=== PATIENT | male | born 1930 | race Caucasian/White ===

== ENCOUNTER 2021-08-02 19:29 | Inpatient (IN) ==
[2021-08-02] MEDS ORDERED: 0.9 % Sodium Chloride 1,000 ML IVC ONE (20:00)
[2021-08-02] MEDS ORDERED: cefTRIAXone 1,000 MG in Water for inj. (sterile) 10 ML IVP ONE (20:06)
[2021-08-02] MEDS ORDERED: Isovue-370 500 ML BOTTLE IVP ONE (20:06)
[2021-08-02 20:10] LABS: Bacteria,Urine Few per hpf (None-Few); Bilirubin,Urine Negative (Negative); Blood,Urine Negative (Negative); Clarity,Urine Clear (Clear); Color,Urine Yellow (Yellow); Glucose,Urine (UA) Normal (Normal); Ketones,Urine Negative (Negative); Leukocyte Esterase,Urine Negative (Negative); Nitrite,Urine Positive (Negative); PH,Urine 7.5 pH Units (5.0-8.0); Protein,Urine 30 mg/dL (Neg-Trace); RBC,Urine 0-3 per hpf (0-3); Specific Gravity,Urine 1.016 (1.010-1.025); Squamous Epithelial Cell,Urine Few per hpf (None-Few); Urobilinogen,Urine Normal (Normal)
[2021-08-02 20:29] LABS: Basophils % 0.2 %; Eosinophils % 0.1 %; Hematocrit 35.7 % (37.5-50.1); Hemoglobin 11.2 g/dL (12.9-16.9); Immature Granulocytes % 0.4 % (0-4); Lymphocytes # 0.3 K/mcL (0.6-4.6); Lymphocytes % 1.8 %; Mean Corpuscular HGB Conc 31.4 g/dL (31.6-35.5); Mean Corpuscular Hemoglobin 28.3 pg (28.0-33.3); Mean Corpuscular Volume 90.2 fL (83.0-100.0); Mean Platelet Volume 9.4 fL (9.4-12.4); Monocytes # 0.4 K/mcL (0.0-1.3); Monocytes % 2.8 %; Neutrophils # 13.9 K/mcL (1.6-8.9); Platelet Count 425 K/mcL (140-400); Red Blood Count 3.96 M/mcL (4.19-5.50); Red Cell Distribution Width 14.3 % (11.5-14.5); Segmented Neutrophils % 94.7 %; White Blood Count 14.6 K/mcL (4.3-11.1)
[2021-08-02 20:36] LABS: VBG HCO3 30 mEq/L (21-27); VBG PCO2 45 mmHg (41-51); VBG PH 7.43 pH Units (7.32-7.42); VBG PO2 56 mmHg (25-50)
[2021-08-02 20:38] LABS: INR 1.1; Prothrombin Time 12.2 Seconds (9.4-12.1)
[2021-08-02 20:40] LABS: Activated Partial Thrombo Time 27.4 Seconds (26.0-36.0)
[2021-08-02 20:53] LABS: Alanine Aminotransferase 262 Units/L (7-52); Albumin 3.4 g/dL (3.5-5.7); Albumin/Globulin Ratio 1.1 (1.1-2.2); Alkaline Phosphatase 396 Units/L (34-104); Aspartate Amino Transferase 488 Units/L (13-39); BUN/Creatinine Ratio 17 (6-26); Bilirubin,Direct 1.1 mg/dL (0.0-0.2); Bilirubin,Indirect 0.6 mg/dL (0.0-1.0); Bilirubin,Total 1.7 mg/dL (0.3-1.0); Blood Urea Nitrogen 21 mg/dL (8-23); Calcium 8.4 mg/dL (8.6-10.3); Carbon Dioxide 28 mEq/L (23-29); Chloride 102 mEq/L (98-107); Globulin 3.1 g/dL (2.4-3.5); Glucose 188 mg/dL (70-105); Lipase 21 Units/L (11-82); Magnesium 1.4 mg/dL (1.6-2.6); Osmolality,Calculated 302 (280-300); Phosphorous 1.4 mg/dL (2.7-4.5); Sodium 142 mEq/L (136-145); Total Protein 6.5 g/dL (6.4-8.9); eGFR For African Americans > 60 (> 60); eGFR For Non-African Americans 57 (> 60)
[2021-08-02 21:21] LABS: Influenza A PCR Negative (Negative); Influenza B PCR Negative (Negative); Resp. Syncytial Virus PCR Negative (Negative)
[2021-08-02 21:24] LABS: Troponin I 0.03 ng/mL (< 0.04)
[2021-08-02 21:28] LABS: SARS-CoV-2 by PCR (In House) Negative (Negative)
[2021-08-02] MEDS ORDERED: *HR* HYDROmorphone (PF) 1 MG/ML SYRINGE IVP ONE (23:22)
[2021-08-03] MEDS ORDERED: Piperacillin/Tazobactam 3.375 GM in 0.9 % Sodium Chloride Mini Bag 100 ML IVPB ONE (00:10)
[2021-08-03] MEDS ORDERED: Calcium Gluconate 1gm/50mL 1 GM/50 ML BAG IVPB ONE (00:15)
[2021-08-03] MEDS ORDERED: Magnesium Sulfate 1 GM/102 ML PIGGYBACK IVPB ONE (00:15)
[2021-08-03] MEDS ORDERED: Ondansetron 4 MG/2 ML VIAL IVP PRN (01:30)
[2021-08-03] MEDS ORDERED: Naloxone 0.4 MG/ML INJ IVP PRN (01:32)
[2021-08-03] MEDS: 0.9 % Sodium Chloride 1,000 ML IVC SCH ×2 (02:07→12:50)
[2021-08-03 02:43] LABS: Hematocrit 31.8 % (37.5-50.1); Hemoglobin 10.2 g/dL (12.9-16.9); Mean Corpuscular HGB Conc 32.1 g/dL (31.6-35.5); Mean Corpuscular Hemoglobin 29.3 pg (28.0-33.3); Mean Corpuscular Volume 91.4 fL (83.0-100.0); Mean Platelet Volume 9.7 fL (9.4-12.4); Platelet Count 352 K/mcL (140-400); Red Blood Count 3.48 M/mcL (4.19-5.50); Red Cell Distribution Width 14.3 % (11.5-14.5)
[2021-08-03 03:00] LABS: Calcium 8.2 mg/dL (8.6-10.3); Chol/HDL Ratio 2.2 (0-4.9); Magnesium 1.4 mg/dL (1.6-2.6); Phosphorous 2.3 mg/dL (2.7-4.5); Potassium 3.5 mEq/L (3.5-5.1)
[2021-08-03 04:03] LABS: Ferritin 95 ng/mL (20-250)
[2021-08-03 04:43] LABS: Estimated Average Glucose 126 mg/dl
[2021-08-03] MEDS ORDERED: *HR* HYDROcodone/Acet 5/325 mg TABLET PO PRN (07:34)
[2021-08-03] MEDS ORDERED: Acetaminophen 325 MG TABLET PO PRN (07:34)
[2021-08-03] MEDS: lisinopriL 10 MG TABLET PO SCH (08:00)
[2021-08-03] MEDS: Piperacillin/Tazobactam 3.375 GM in 0.9 % Sodium Chloride Mini Bag 100 ML IVPB SCH ×2 (08:17→18:20)
[2021-08-03] MEDS ORDERED: cefTRIAXone 1,000 MG in 0.9 % Sodium Chloride Mini Bag 100 ML IVPB SCH (09:00)
[2021-08-03 09:59] LABS: Troponin I 0.07 ng/mL (< 0.04)
[2021-08-03 11:38] LABS: Enterococcus by PCR Not Detected (Not Detect); blaKPC Carbapenem-Resist Gene Not Detected (Not Detect)
[2021-08-03 11:39] LABS: Acinetobacter baumannii by PCR Not Detected (Not Detect); Candida albicans by PCR Not Detected (Not Detect); Candida glabrata by PCR Not Detected (Not Detect); Candida krusei by PCR Not Detected (Not Detect); Candida parapsilosis by PCR Not Detected (Not Detect); Candida tropicalis by PCR Not Detected (Not Detect); Enterobacter cloacae Cmplx PCR Not Detected (Not Detect); Escherichia coli by PCR DETECTED (Not Detect); Klebsiella oxytoca by PCR Not Detected (Not Detect); Klebsiella pneumoniae by PCR Not Detected (Not Detect); Proteus by PCR Not Detected (Not Detect); Pseudomonas aeruginosa by PCR Not Detected (Not Detect); Serratia marcescens by PCR Not Detected (Not Detect); Staphylococcus aureus by PCR Not Detected (Not Detect); Staphylococcus by PCR Not Detected (Not Detect); Streptococcus agalactiae(B)PCR Not Detected (Not Detect); Streptococcus by PCR Not Detected (Not Detect); Streptococcus pneumoniae PCR Not Detected (Not Detect); Streptococcus pyogenes (A) PCR Not Detected (Not Detect)
[2021-08-03] MEDS ORDERED: Isovue-370 500 ML BOTTLE IVP ONE (11:57)
[2021-08-03 12:58] LABS: Carcinoembryonic Antigen 34.4 ng/mL (Less than 5.0)
[2021-08-03] MEDS ORDERED: Lidocaine HCL 4 ML Topical Solution (Laryng-O-Jet Kit Sterile Pak) TP ONE (14:46)
[2021-08-03] MEDS ORDERED: Lidocaine -MPF 2% 5 ML VIAL ONE (14:47)
[2021-08-03] MEDS ORDERED: *HR* FentaNYL (PF) 100 MCG/2 ML VIAL ONE (14:48)
[2021-08-03] MEDS ORDERED: *HR* Succinylcholine 200 MG/10 ML VIAL IVP ONE (14:49)
[2021-08-03] MEDS ORDERED: *HR* Rocuronium Bromide 50 MG/5 ML VIAL ONE (14:49)
[2021-08-03] MEDS ORDERED: Ondansetron 4 MG/2 ML VIAL ONE (14:50)
[2021-08-03] MEDS ORDERED: Indomethacin 50 MG SUPP.RECT RC ONE (16:36)
[2021-08-04] MEDS: Piperacillin/Tazobactam 3.375 GM in 0.9 % Sodium Chloride Mini Bag 100 ML IVPB SCH (02:37)
[2021-08-04 06:53] LABS: Mean Platelet Volume 10.8 fL (9.4-12.4)
[2021-08-04 06:55] LABS: Hematocrit 29.3 % (37.5-50.1); Hemoglobin 8.9 g/dL (12.9-16.9); Mean Corpuscular HGB Conc 30.4 g/dL (31.6-35.5); Mean Corpuscular Hemoglobin 28.3 pg (28.0-33.3); Mean Corpuscular Volume 93.3 fL (83.0-100.0); Platelet Count 156 K/mcL (140-400); Red Blood Count 3.14 M/mcL (4.19-5.50); Red Cell Distribution Width 14.9 % (11.5-14.5); White Blood Count 26.4 K/mcL (4.3-11.1)
[2021-08-04 07:57] LABS: Calcium 7.3 mg/dL (8.6-10.3); Potassium 4.6 mEq/L (3.5-5.1)
[2021-08-04] MEDS: lisinopriL 10 MG TABLET PO SCH (09:44)
[2021-08-04] MEDS ORDERED: Piperacillin/Tazobactam 3.375 GM in 0.9 % Sodium Chloride Mini Bag 100 ML IVPB SCH (10:00)
[2021-08-04] MEDS ORDERED: Calcium Gluconate 1gm/50mL 1 GM/50 ML BAG IVPB ONE (11:55)
[2021-08-04 11:56] LABS: Albumin 2.6 g/dL (3.5-5.7); Albumin/Globulin Ratio 0.9 (1.1-2.2); Bilirubin,Direct 1.6 mg/dL (0.0-0.2); Bilirubin,Indirect 0.4 mg/dL (0.0-1.0); Globulin 2.8 g/dL (2.4-3.5); Total Protein 5.4 g/dL (6.4-8.9)
[2021-08-04] MEDS: 0.9 % Sodium Chloride 1,000 ML IVC SCH (15:15)
[2021-08-04] MEDS: cefTRIAXone 2,000 MG in 0.9 % Sodium Chloride Mini Bag 100 ML IVPB SCH (15:24)
[2021-08-04] MEDS: metroNIDAZOLE 500 MG TABLET PO SCH ×2 (15:26→20:25)
[2021-08-04] MEDS: Cholecalciferol (D-3) 1,000 UNIT (25MCG) TABLET PO SCH (15:26)
[2021-08-04] MEDS ORDERED: SODIUM CHLORIDE/NAHCO3/KCL/PEG 4,000 ML SOLN.RECON PO ONE (17:00)
[2021-08-04 18:39] LABS: Magnesium 1.8 mg/dL (1.6-2.6); Phosphorous 3.7 mg/dL (2.7-4.5)
[2021-08-04 18:41] LABS: Albumin 2.9 g/dL (3.5-5.7); Bilirubin,Direct 0.8 mg/dL (0.0-0.2); Bilirubin,Indirect 0.5 mg/dL (0.0-1.0); Bilirubin,Total 1.3 mg/dL (0.3-1.0); Globulin 2.9 g/dL (2.4-3.5); Total Protein 5.8 g/dL (6.4-8.9)
[2021-08-05] MEDS: 0.9 % Sodium Chloride 1,000 ML IVC SCH (01:30)
[2021-08-05 05:45] LABS: Hematocrit 31.9 % (37.5-50.1); Hemoglobin 10.2 g/dL (12.9-16.9); Mean Corpuscular Hemoglobin 28.8 pg (28.0-33.3); Mean Corpuscular Volume 90.1 fL (83.0-100.0); Mean Platelet Volume 11.5 fL (9.4-12.4); Platelet Count 148 K/mcL (140-400); Red Blood Count 3.54 M/mcL (4.19-5.50); Red Cell Distribution Width 14.6 % (11.5-14.5); White Blood Count 26.2 K/mcL (4.3-11.1)
[2021-08-05 05:53] LABS: Albumin 2.9 g/dL (3.5-5.7); Albumin/Globulin Ratio 0.9 (1.1-2.2); Bilirubin,Total 1.1 mg/dL (0.3-1.0); Calcium 8.1 mg/dL (8.6-10.3); Globulin 3.1 g/dL (2.4-3.5)
[2021-08-05 05:54] LABS: Albumin 2.9 g/dL (3.5-5.7); Albumin/Globulin Ratio 0.9 (1.1-2.2); Bilirubin,Direct 0.6 mg/dL (0.0-0.2); Bilirubin,Indirect 0.5 mg/dL (0.0-1.0); Bilirubin,Total 1.1 mg/dL (0.3-1.0); Globulin 3.2 g/dL (2.4-3.5); Total Protein 6.1 g/dL (6.4-8.9)
[2021-08-05 06:30] LABS: Lymphocytes # 0.8 K/mcL (0.6-4.6); Monocytes # 0.8 K/mcL (0.0-1.3); Neutrophils # 24.6 K/mcL (1.6-8.9); Toxic Granulation Present (Not Present)
[2021-08-05 06:31] LABS: Platelet Estimate Normal (Normal)
[2021-08-05] MEDS: cefTRIAXone 2,000 MG in 0.9 % Sodium Chloride Mini Bag 100 ML IVPB SCH (08:42)
[2021-08-05] MEDS: Cholecalciferol (D-3) 1,000 UNIT (25MCG) TABLET PO SCH (08:43)
[2021-08-05] MEDS: metroNIDAZOLE 500 MG TABLET PO SCH ×3 (08:43→21:02)
[2021-08-05] MEDS ORDERED: *HR* Propofol 200 MG/20 ML VIAL IVP ONE (10:34)
[2021-08-05 10:48] LABS: Transferrin 156 mg/dL (200-400)
[2021-08-05 11:02] LABS: Magnesium 1.9 mg/dL (1.6-2.6); Phosphorous 2.6 mg/dL (2.7-4.5)
[2021-08-05] MEDS ORDERED: Calcium Gluconate 1gm/50mL 1 GM/50 ML BAG IVPB ONE (11:17)
[2021-08-05] MEDS ORDERED: Perflutren Lipid Microsphere 1.3 ML in 0.9 % Sodium Chloride 8.7 ML IVP PRN (11:21)
[2021-08-05] MEDS: *HR* Metoprolol 5 MG/5 ML VIAL IVP PRN (12:03)
[2021-08-05] MEDS ORDERED: *HR* Heparin 5,000 UNIT/ML VIAL IVP ONE (12:40)
[2021-08-05] MEDS ORDERED: *HR* Heparin 5,000 UNIT/ML VIAL IVP PRN ×2 (12:40)
[2021-08-05] MEDS: DilTIAZem 50 MG/50 ML IV.SOLN IVC SCH ×3 (13:47→21:52)
[2021-08-05] MEDS: Heparin 25,000UNIT/250ML 1/2NS 25,000 UNIT/250 ML IV.SOLN IVC SCH (13:48)
[2021-08-05 15:09] LABS: Hematocrit 33.4 % (37.5-50.1); Hemoglobin 10.8 g/dL (12.9-16.9); Mean Corpuscular HGB Conc 32.3 g/dL (31.6-35.5); Mean Corpuscular Hemoglobin 29.8 pg (28.0-33.3); Mean Corpuscular Volume 92.3 fL (83.0-100.0); Mean Platelet Volume 11.3 fL (9.4-12.4); Platelet Count 172 K/mcL (140-400); Red Blood Count 3.62 M/mcL (4.19-5.50); Red Cell Distribution Width 14.7 % (11.5-14.5); White Blood Count 23.5 K/mcL (4.3-11.1)
[2021-08-05 15:16] LABS: Heparin anti-factor XA UFH 0.55 IU/mL (0.30-0.70)
[2021-08-05 15:17] LABS: INR 1.2; Prothrombin Time 13.2 Seconds (9.4-12.1)
[2021-08-05] MEDS ORDERED: SODIUM CHLORIDE/NAHCO3/KCL/PEG 4,000 ML SOLN.RECON PO ONE (17:00)
[2021-08-06] MEDS: DilTIAZem 50 MG/50 ML IV.SOLN IVC SCH ×5 (00:02→19:56)
[2021-08-06 05:25] LABS: Basophils % 0.2 %; Eosinophils % 0.2 %; Hematocrit 30.9 % (37.5-50.1); Hemoglobin 9.7 g/dL (12.9-16.9); Immature Granulocytes % 3.2 % (0-4); Lymphocytes # 0.8 K/mcL (0.6-4.6); Lymphocytes % 4.9 %; Mean Corpuscular HGB Conc 31.4 g/dL (31.6-35.5); Mean Corpuscular Hemoglobin 29.1 pg (28.0-33.3); Mean Corpuscular Volume 92.8 fL (83.0-100.0); Mean Platelet Volume 11.1 fL (9.4-12.4); Monocytes # 0.9 K/mcL (0.0-1.3); Monocytes % 5.8 %; Neutrophils # 13.7 K/mcL (1.6-8.9); Platelet Count 149 K/mcL (140-400); Red Blood Count 3.33 M/mcL (4.19-5.50); Red Cell Distribution Width 14.8 % (11.5-14.5); Segmented Neutrophils % 85.7 %
[2021-08-06 05:46] LABS: Alanine Aminotransferase 77 Units/L (7-52); Albumin 2.8 g/dL (3.5-5.7); Albumin/Globulin Ratio 0.9 (1.1-2.2); Alkaline Phosphatase 288 Units/L (34-104); Aspartate Amino Transferase 32 Units/L (13-39); BUN/Creatinine Ratio 20 (6-26); Bilirubin,Total 0.7 mg/dL (0.3-1.0); Blood Urea Nitrogen 26 mg/dL (8-23); Calcium 8.3 mg/dL (8.6-10.3); Carbon Dioxide 25 mEq/L (23-29); Chloride 108 mEq/L (98-107); Glucose 102 mg/dL (70-105); Osmolality,Calculated 293 (280-300); Potassium 4.3 mEq/L (3.5-5.1); Sodium 139 mEq/L (136-145); Total Protein 5.8 g/dL (6.4-8.9); eGFR For African Americans > 60 (> 60); eGFR For Non-African Americans 54 (> 60)
[2021-08-06 05:48] LABS: Magnesium 1.7 mg/dL (1.6-2.6); Phosphorous 2.2 mg/dL (2.7-4.5)
[2021-08-06 05:50] LABS: Albumin 2.8 g/dL (3.5-5.7); Albumin/Globulin Ratio 0.9 (1.1-2.2); Bilirubin,Direct 0.4 mg/dL (0.0-0.2); Bilirubin,Indirect 0.3 mg/dL (0.0-1.0); Bilirubin,Total 0.7 mg/dL (0.3-1.0); Total Protein 5.8 g/dL (6.4-8.9)
[2021-08-06] MEDS: Heparin 25,000UNIT/250ML 1/2NS 25,000 UNIT/250 ML IV.SOLN IVC SCH (07:25)
[2021-08-06] MEDS ORDERED: Lidocaine -MPF 2% 2 ML VIAL ONE (09:09)
[2021-08-06] MEDS ORDERED: Ondansetron 4 MG/2 ML VIAL ONE (10:05)
[2021-08-06] MEDS: cefTRIAXone 2,000 MG in 0.9 % Sodium Chloride Mini Bag 100 ML IVPB SCH (11:01)
[2021-08-06] MEDS: Cholecalciferol (D-3) 1,000 UNIT (25MCG) TABLET PO SCH (11:03)
[2021-08-06] MEDS: metroNIDAZOLE 500 MG TABLET PO SCH ×3 (11:03→19:42)
[2021-08-07 05:23] LABS: Lymphocytes % 7.7 %; Monocytes % 10.7 %; Platelet Count 134 K/mcL (140-400)
[2021-08-07 05:24] LABS: Basophils # 0.1 K/mcL (0.0-0.2); Basophils % 0.9 %; Eosinophils # 0.1 K/mcL (0.0-0.6); Eosinophils % 0.7 %; Hematocrit 33.3 % (37.5-50.1); Hemoglobin 10.1 g/dL (12.9-16.9); Immature Granulocytes % 3.4 % (0-4); Immature Platelets 9.5 % (1.1-6.1); Mean Corpuscular HGB Conc 30.3 g/dL (31.6-35.5); Mean Corpuscular Hemoglobin 28.2 pg (28.0-33.3); Mean Platelet Volume 11.6 fL (9.4-12.4); Monocytes # 1.3 K/mcL (0.0-1.3); Neutrophils # 9.6 K/mcL (1.6-8.9); Nucleated Red Blood Cells 0.2 /100 WBC (0); Red Blood Count 3.58 M/mcL (4.19-5.50); Red Cell Distribution Width 14.7 % (11.5-14.5); Segmented Neutrophils % 76.6 %; White Blood Count 12.5 K/mcL (4.3-11.1)
[2021-08-07 05:31] LABS: Alanine Aminotransferase 54 Units/L (7-52); Albumin 2.8 g/dL (3.5-5.7); Albumin/Globulin Ratio 0.9 (1.1-2.2); Alkaline Phosphatase 290 Units/L (34-104); Aspartate Amino Transferase 21 Units/L (13-39); BUN/Creatinine Ratio 16 (6-26); Bilirubin,Direct 0.3 mg/dL (0.0-0.2); Bilirubin,Indirect 0.3 mg/dL (0.0-1.0); Bilirubin,Total 0.6 mg/dL (0.3-1.0); Blood Urea Nitrogen 20 mg/dL (8-23); Calcium 8.1 mg/dL (8.6-10.3); Carbon Dioxide 26 mEq/L (23-29); Chloride 107 mEq/L (98-107); Glucose 144 mg/dL (70-105); Magnesium 1.7 mg/dL (1.6-2.6); Osmolality,Calculated 297 (280-300); Phosphorous 2.4 mg/dL (2.7-4.5); Potassium 4.3 mEq/L (3.5-5.1); Sodium 141 mEq/L (136-145); Total Protein 5.8 g/dL (6.4-8.9); eGFR For African Americans > 60 (> 60); eGFR For Non-African Americans 54 (> 60)
[2021-08-07] MEDS: Heparin 25,000UNIT/250ML 1/2NS 25,000 UNIT/250 ML IV.SOLN IVC SCH ×3 (07:10→20:31)
[2021-08-07] MEDS: Metoprolol XL (24 HR) Succ 50 MG TAB.ER.24H PO SCH ×2 (07:55→19:50)
[2021-08-07] MEDS: metroNIDAZOLE 500 MG TABLET PO SCH ×3 (07:55→19:50)
[2021-08-07] MEDS: cefTRIAXone 2,000 MG in 0.9 % Sodium Chloride Mini Bag 100 ML IVPB SCH (07:55)
[2021-08-07] MEDS: Cholecalciferol (D-3) 1,000 UNIT (25MCG) TABLET PO SCH (07:55)
[2021-08-07] MEDS ORDERED: Metoprolol XL (24 HR) Succ 50 MG TAB.ER.24H PO SCH (09:00)
[2021-08-07] MEDS: lisinopriL 10 MG TABLET PO SCH (10:05)
[2021-08-07] MEDS ORDERED: Perflutren Lipid Microsphere 1.3 ML in 0.9 % Sodium Chloride 8.7 ML IVP PRN (10:46)
[2021-08-08 07:35] LABS: Magnesium 1.4 mg/dL (1.6-2.6); Phosphorous 2.3 mg/dL (2.7-4.5)
[2021-08-08 07:36] LABS: Albumin 2.7 g/dL (3.5-5.7); Albumin/Globulin Ratio 0.9 (1.1-2.2); Bilirubin,Direct 0.3 mg/dL (0.0-0.2); Bilirubin,Indirect 0.3 mg/dL (0.0-1.0); Bilirubin,Total 0.6 mg/dL (0.3-1.0); Total Protein 5.7 g/dL (6.4-8.9)
[2021-08-08] MEDS: cefTRIAXone 2,000 MG in 0.9 % Sodium Chloride Mini Bag 100 ML IVPB SCH (08:50)
[2021-08-08] MEDS: Metoprolol XL (24 HR) Succ 50 MG TAB.ER.24H PO SCH ×2 (08:55→20:33)
[2021-08-08] MEDS: lisinopriL 10 MG TABLET PO SCH (08:55)
[2021-08-08] MEDS: metroNIDAZOLE 500 MG TABLET PO SCH ×3 (08:55→20:32)
[2021-08-08] MEDS: Cholecalciferol (D-3) 1,000 UNIT (25MCG) TABLET PO SCH (08:55)
[2021-08-08] MEDS: Heparin 25,000UNIT/250ML 1/2NS 25,000 UNIT/250 ML IV.SOLN IVC SCH ×2 (10:49→23:17)
[2021-08-08] MEDS: *HR* Metoprolol 5 MG/5 ML VIAL IVP PRN (11:23)
[2021-08-08 16:59] LABS: Basophils # 0.1 K/mcL (0.0-0.2); Basophils % 0.4 %; Eosinophils # 0.2 K/mcL (0.0-0.6); Eosinophils % 1.3 %; Hematocrit 38.9 % (37.5-50.1); Hemoglobin 11.9 g/dL (12.9-16.9); Immature Granulocytes % 7.4 % (0-4); Lymphocytes # 1.2 K/mcL (0.6-4.6); Lymphocytes % 8.3 %; Mean Corpuscular HGB Conc 30.6 g/dL (31.6-35.5); Mean Corpuscular Volume 91.5 fL (83.0-100.0); Mean Platelet Volume 10.8 fL (9.4-12.4); Monocytes # 1.9 K/mcL (0.0-1.3); Nucleated Red Blood Cells 0.1 /100 WBC (0); Platelet Count 246 K/mcL (140-400); Red Blood Count 4.25 M/mcL (4.19-5.50); Red Cell Distribution Width 14.8 % (11.5-14.5); Segmented Neutrophils % 69.6 %; White Blood Count 14.6 K/mcL (4.3-11.1)
[2021-08-08 17:06] LABS: Neutrophils # 10.2 K/mcL (1.6-8.9)
[2021-08-08 17:35] LABS: Alanine Aminotransferase 39 Units/L (7-52); Alkaline Phosphatase 330 Units/L (34-104); Aspartate Amino Transferase 23 Units/L (13-39); BUN/Creatinine Ratio 14 (6-26); Bilirubin,Total 0.6 mg/dL (0.3-1.0); Blood Urea Nitrogen 17 mg/dL (8-23); Calcium 8.6 mg/dL (8.6-10.3); Carbon Dioxide 25 mEq/L (23-29); Chloride 107 mEq/L (98-107); Glucose 124 mg/dL (70-105); Osmolality,Calculated 291 (280-300); Potassium 4.1 mEq/L (3.5-5.1); Sodium 139 mEq/L (136-145); Total Protein 6.4 g/dL (6.4-8.9); eGFR For African Americans > 60 (> 60); eGFR For Non-African Americans 58 (> 60)
[2021-08-08 17:36] LABS: Albumin/Globulin Ratio 0.9 (1.1-2.2); Globulin 3.4 g/dL (2.4-3.5)
[2021-08-09 01:09] LABS: Basophils # 0.2 K/mcL (0.0-0.2); Basophils % 1.6 %; Eosinophils # 0.2 K/mcL (0.0-0.6); Eosinophils % 1.6 %; Hematocrit 34.1 % (37.5-50.1); Hemoglobin 10.2 g/dL (12.9-16.9); Immature Granulocytes % 8.1 % (0-4); Lymphocytes % 8.1 %; Mean Corpuscular HGB Conc 29.9 g/dL (31.6-35.5); Mean Corpuscular Hemoglobin 27.9 pg (28.0-33.3); Mean Corpuscular Volume 93.4 fL (83.0-100.0); Mean Platelet Volume 11.3 fL (9.4-12.4); Monocytes % 15.3 %; Platelet Count 245 K/mcL (140-400); Red Blood Count 3.65 M/mcL (4.19-5.50); Red Cell Distribution Width 14.8 % (11.5-14.5); Segmented Neutrophils % 65.3 %; White Blood Count 12.8 K/mcL (4.3-11.1)
[2021-08-09 01:11] LABS: Neutrophils # 8.4 K/mcL (1.6-8.9)
[2021-08-09 01:28] LABS: Alanine Aminotransferase 34 Units/L (7-52); Albumin 2.8 g/dL (3.5-5.7); Alkaline Phosphatase 305 Units/L (34-104); Aspartate Amino Transferase 19 Units/L (13-39); BUN/Creatinine Ratio 14 (6-26); Bilirubin,Total 0.5 mg/dL (0.3-1.0); Blood Urea Nitrogen 17 mg/dL (8-23); Calcium 8.2 mg/dL (8.6-10.3); Carbon Dioxide 27 mEq/L (23-29); Chloride 107 mEq/L (98-107); Globulin 2.9 g/dL (2.4-3.5); Glucose 150 mg/dL (70-105); Osmolality,Calculated 286 (280-300); Potassium 4.1 mEq/L (3.5-5.1); Sodium 136 mEq/L (136-145); Total Protein 5.7 g/dL (6.4-8.9); eGFR For African Americans > 60 (> 60); eGFR For Non-African Americans 56 (> 60)
[2021-08-09 09:15] VITALS: BP 148/69; PULSE 59; TEMP 97.9; O2SAT 95
[2021-08-09] MEDS ORDERED: Spironolactone 25 MG TABLET PO SCH (10:30)
[2021-08-09] MEDS ORDERED: Metoprolol XL (24 HR) Succ 25 MG TAB.ER.24H PO ONE (10:42)
[2021-08-09] MEDS: metroNIDAZOLE 500 MG TABLET PO SCH (11:17)
[2021-08-09] MEDS: Cholecalciferol (D-3) 1,000 UNIT (25MCG) TABLET PO SCH (11:19)
[2021-08-09] MEDS: cefTRIAXone 2,000 MG in 0.9 % Sodium Chloride Mini Bag 100 ML IVPB SCH (11:23)
[2021-08-09] MEDS: lisinopriL 10 MG TABLET PO SCH (11:25)
[2021-08-09] MEDS ORDERED: Metoprolol XL (24 HR) Succ 50 MG TAB.ER.24H PO SCH (21:00)
== END 2021-08-09 15:15 | disposition home or self-care (01) | DRG 871 ==
LOC: EMEROOARM 19:29 → 3BNU 19:29
PROVIDERS: ADMIT Student in an Organized Health Care Education/Training Program; ATTEND Student in an Organized Health Care Education/Training Program
PROC: ENDOCBX (2021-08-06 11:00)